=== PATIENT | male | born 1950 | race Native Hawaiian/Other Pacific Islander ===

== ENCOUNTER 2017-01-24 09:53 | Emergency (ER) | payer SELFPAY ==
[2017-01-24 09:53] VITALS: BMI 25.7
[2017-01-24 10:22] VITALS: RESP 18
--- NOTE | 2017-01-24 10:37 | ED PDOC ---
HPI: General Adult Time Seen by Provider: 01/24/17 10:19 Chief Complaint (Nursing): Fever Chief Complaint (Provider): fever History Per: Patient, Operations Supervisor 2Nd Shift (son, citl[employer] small order cutter not available at time) History/Exam Limitations: language barrier Onset/Duration Of Symptoms: Days (10) Current Symptoms Are (Timing): Intermittent Episodes Severity: Moderate Additional Complaint(s): 66yo male vietnemese speaking presents w son who states patient has had shaking chills and fever ongoing for about 10 days. Symptoms associated w nausea but no vomiting, denies diarrhea, abdominal pain, urinary complaints, cough, headache, rash or sore throat. Pt has been in [place] for 3 years and no foreign travel over last 6 months. Past Medical History Reviewed: Historical Data, Nursing Documentation, Vital Signs, Unable To Obtain Vital Signs: Last Vital Signs Temp 98 F 01/24/17 10:15 Pulse 66 01/24/17 10:15 Resp 18 01/24/17 10:15 BP 125/68 01/24/17 10:15 Pulse Ox 97 01/24/17 15:27 - Medical History PMH: Diabetes, HTN, Hypercholesterolemia Denies: HIV, Chronic Kidney Disease - Surgical History Surgical History: No Surg Hx - Family History Family History: States: Unknown Family Hx - Living Arrangements Living Arrangements: With Family - Social History Current smoker - smoking cessation education provided: No Alcohol: None - Home Medications Home Medications: Ambulatory Orders Medication Instructions Recorded Aspirin [Adult Low Dose Aspirin EC] 81 mg PO DAILY #30 tablet. 11/30/15 Atorvastatin [Lipitor] 10 mg PO DIN #0 tab 11/30/15 Bisoprolol [Zebeta] 2.5 mg PO DAILY #0 tab 11/30/15 Lisinopril 2.5 mg PO DAILY #30 tablet 11/30/15 metFORMIN [glucOPHAGE] 850 mg PO DAILY #0 tab 11/30/15 Azithromycin [Zithromax] 250 mg PO DAILY #6 tab 01/24/17 - Allergies Allergies/Adverse Reactions: Allergies Allergy/AdvReac Type Severity Reaction Status Date / Time No Known Allergies Allergy Verified 01/24/17 10:15 Review of Systems Constitutional: Positive for: Fever, Chills, Sweats, Weakness, Malaise. Negative for: Weight loss ENT: Negative for: Nose Discharge, Throat Pain Cardiovascular: Negative for: Chest Pain, Edema Respiratory: Negative for: Cough, Shortness of Breath Gastrointestinal: Positive for: Nausea. Negative for: Vomiting, Abdominal Pain , Diarrhea, Rectal Pain Genitourinary Male: Negative for: Dysuria, Frequency, Scrotal Pain Musculoskeletal: Negative for: Neck Pain, Back Pain Skin: Negative for: Rash, Lesions, Jaundice Neurological: Negative for: Weakness, Headache, Dizziness Psych: Negative for: Depression Physical Exam - Reviewed Nursing Documentation Reviewed: Yes Vital Signs Reviewed: Yes - Physical Exam Appears: Positive for: Well, Non-toxic, No Acute Distress Head Exam: Positive for: ATRAUMATIC, NORMAL INSPECTION, NORMOCEPHALIC Skin: Positive for: Normal Color, Warm, DRY Eye Exam: Positive for: EOMI, Normal appearance, PERRL ENT: Positive for: Normal ENT Inspection, Other (uvula absent). Negative for: Pharyngeal Erythema, Tonsillar Exudate, Tonsillar Swelling Neck: Positive for: Normal, Painless ROM Cardiovascular/Chest: Positive for: Regular Rate, Rhythm Respiratory: Positive for: CNT, Normal Breath Sounds Pulses-Radial (L): 3+/4+ Pulses-Radial (R): 3+/4+ Gastrointestinal/Abdominal: Positive for: Bowel Sounds, Soft. Negative for: Tenderness, Guarding Back: Positive for: Normal Inspection Extremity: Positive for: Normal ROM Neurologic/Psych: Positive for: Alert, Oriented. Negative for: Motor/Sensory Deficits - Laboratory Results Result Diagrams: 01/24/17 10:40 01/24/17 10:40 - ECG O2 Sat by Pulse Oximetry: 97 Medical Decision Making Medical Decision Making: workup for reported fever initiated. Afebrile oral temp in ED. labs reviewed and unremarkable CXR: Creator : Lobo Puente MD Dictator : Lobo Puente MD Technician Biological Health : Medical Transcription Supervisor : Lobo Puente MD Approver2 : Report Date : 01/24/2017 13:57:37 My Comment : HISTORY: fever COMPARISON: Chest radiograph 11/29/2015. TECHNIQUE: Chest PA and lateral FINDINGS: LUNGS: No acute infiltrate is appreciate bilaterally however nodular/fibrotic changes are increased at the left base and may represent further fibrosis or potential interval infectious process. Consider follow-up chest CT for additional characterization. PLEURA: No significant pleural effusion identified. No pneumothorax apparent. CARDIOVASCULAR: Normal. OSSEOUS STRUCTURES: No significant abnormalities. VISUALIZED UPPER ABDOMEN: Normal. OTHER FINDINGS: None. IMPRESSION: Increased fibrotic/nodular changes seen the inferior left lung zone for which follow-up chest CT is advised for additional characterization. Limited acute alveolitis is not excluded though not favored. Will initiate Azithomycin, needs followup CXR in one week and if persists CT chest D/w Dr Moy [facility] who will see patient and provide followup appt later this week for repeat CXR or CT chest if indicated nonemergently. Patient well appearing, normal resp pattern, unremarkable labs and no indication for current hospitalization as this time Discussed with kael girard on phone for instructions and next steps/ recommendations. has appt jan [address] Daniel Disposition - Clinical Impression Clinical Impression: Malaise, Fever in adult - Patient ED Disposition Is Patient to be Admitted: No Counseled Patient/Family Regarding: Studies Performed, Diagnosis, Need For Followup - Disposition Referrals: [facility] [Outside] Condition: STABLE Additional Instructions: Return to ER for any worse or new symptoms. Prescriptions: Azithromycin [Zithromax] 250 mg PO DAILY #6 tab Instructions: Fever in Adults (ED), Weakness (ED), Fatigue (ED)
[2017-01-24 10:51] LABS: BASO % 0.4 % (0.0-2.0); EOS # 0.2 K/uL (0.0-0.7); EOS % 2.7 % (0.0-4.0); HEMATOCRIT 39.8 % (35.0-51.0); LYMPH # 1.5 K/uL (1.0-4.3); LYMPH % 19.8 % (20.0-40.0); MEAN CELL VOLUME 87.9 fl (80.0-94.0); MEAN CORPUSCULAR HEMOGLOBIN 28.8 pg (27.0-31.0); MEAN CORPUSCULAR HGB CONC 32.8 g/dL (33.0-37.0); MEAN PLATELET VOLUME 7.6 fl (7.2-11.7); MONO # 0.6 K/uL (0.0-0.8); MONO % 7.7 % (0.0-10.0); NEUT # 5.2 K/uL (1.8-7.0); NEUT % 69.4 % (50.0-75.0); WHITE BLOOD COUNT 7.5 K/uL (4.8-10.8)
[2017-01-24 10:54] LABS: VENOUS BLOOD GAS BASE EXCESS 0.1 mmol/L (0.0-2.0); VENOUS BLOOD GAS PCO2 46 mmHg (40-60); VENOUS BLOOD PH 7.36 (7.32-7.43)
[2017-01-24 11:07] LABS: RBC URINE 2 /hpf (0-3); URINE BILIRUBIN NEGATIVE (NEGATIVE); URINE BLOOD NEGATIVE (NEGATIVE); URINE COLOR YELLOW (YELLOW); URINE GLUCOSE (UA) NEG (Normal); URINE KETONE NEGATIVE (NEGATIVE); URINE LEUKOCYTE ESTERASE NEG Leu/uL (Negative); URINE PROTEIN NEGATIVE (NEGATIVE); URINE UROBILINOGEN 0.2-1.0 mg/dL (0.2-1.0); WBC URINE 1 /hpf (0-5)
[2017-01-24 11:53] LABS: ALB/GLOB RATIO 1.3 (1.0-2.1); ALKALINE PHOSPHATASE 52 U/L (38-126); ALT/SGPT 66 U/L (21-72); AST/SGOT 46 U/L (17-59); BILIRUBIN,TOTAL 0.6 mg/dl (0.2-1.3); BLOOD UREA NITROGEN 14 mg/dl (9-20); CALCIUM 9.4 mg/dL (8.4-10.2); CARBON DIOXIDE 24 mmol/L (22-30); CHLORIDE 100 mmol/L (98-107); GFR AFRICAN-AMERICAN > 60; GLUCOSE,RANDOM 182 mg/dL (75-110); LIPASE 146 U/L (23-300); POTASSIUM 4.7 MMOL/L (3.6-5.0); SODIUM 137 mmol/l (132-148); TOTAL PROTEIN 8.3 G/DL (6.3-8.2)
[2017-01-24] MEDS ORDERED: Sodium Chloride 0.9% 1,000 ML IV STA (13:23)
--- NOTE | 2017-01-24 13:59 | RAD ---
HISTORY: fever COMPARISON: Chest radiograph 11/29/2015. TECHNIQUE: Chest PA and lateral FINDINGS: LUNGS: No acute infiltrate is appreciate bilaterally however nodular/fibrotic changes are increased at the left base and may represent further fibrosis or potential interval infectious process. Consider follow-up chest CT for additional characterization. PLEURA: No significant pleural effusion identified. No pneumothorax apparent. CARDIOVASCULAR: Normal. OSSEOUS STRUCTURES: No significant abnormalities. VISUALIZED UPPER ABDOMEN: Normal. OTHER FINDINGS: None. IMPRESSION: Increased fibrotic/nodular changes seen the inferior left lung zone for which follow-up chest CT is advised for additional characterization. Limited acute alveolitis is not excluded though not favored.
[2017-01-24 15:51] VITALS: BP 133/66; PULSE 69; TEMP 98.9; O2SAT 99
--- NOTE | 2017-01-25 12:23 | CARD ---
APPROVED REPORT EKG Measurement Heart [id number] <Conclusion> Normal sinus rhythm Possible Anterior infarct, age undetermined Abnormal ECG
== END 2017-01-24 16:35 | disposition home or self-care (01) ==
LOC: H.ER 09:53
DX: R53.81 Other malaise (principal); R50.9 Fever, unspecified; I10 Essential (primary) hypertension; E11.9 Type 2 diabetes mellitus without complications; E78.00 Pure hypercholesterolemia, unspecified
CPT/HCPCS: 71020; 80053; 81003; 82803; 82948; 83690; 84484; 85025; 87040; 93005; 96360; 99284; J7040